=== PATIENT | male | born 2000 | race Caucasian/White ===

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

== ENCOUNTER 2019-04-02 09:43 | Emergency (ER) | payer MEDICAID ==
[~2019-04-02] VITALS: Ht 175.3 cm; Wt 72.6 kg
[2019-04-02 09:58] VITALS: BP_SYST 116
[2019-04-02 11:05] VITALS: BP_SYST 116
== END 2019-04-02 11:05 | disposition home or self-care (01) ==
LOC: SED 09:43
DX: J06.9 Acute upper respiratory infection, unspecified (principal)
CPT/HCPCS: 36415; 86403; 87081; 99283

== ENCOUNTER 2019-07-16 18:54 | Emergency (ER) | payer MEDICAID ==
[~2019-07-16] VITALS: Ht 175.3 cm; Wt 77.6 kg
[2019-07-16 19:01] VITALS: BP_SYST 118
[2019-07-16] MEDS ORDERED: KETOROLAC TROMETHAMINE 60 MG/2 ML VIAL IM ONE (20:30)
[2019-07-16 22:40] VITALS: BP_SYST 115
== END 2019-07-16 22:40 | disposition home or self-care (01) ==
LOC: SED 18:54
DX: S63.92XA Sprain of unspecified part of left wrist and hand, initial encounter (principal); X58.XXXA Exposure to other specified factors, initial encounter; Y93.89 Activity, other specified; Y92.89 Other specified places as the place of occurrence of the external cause; Y99.8 Other external cause status
CPT/HCPCS: 73130; 73200; 96372; 99284; J1885

== ENCOUNTER 2024-05-07 03:01 | Emergency (ER) | payer MEDICAID ==
[~2024-05-07] VITALS: Ht 175.3 cm; Wt 90.7 kg
[2024-05-07 03:15] VITALS: BP_SYST 138; PULSE 104; RESP 16; TEMP 96.8; O2SAT 97
[2024-05-07] MEDS: LIDOCAINE 1% 10 MG/ML, 20 ML MDV INJ ONE (04:15)
[2024-05-07 04:41] VITALS: BP_SYST 131; PULSE 81; RESP 17; TEMP 98.3; O2SAT 95
== END 2024-05-07 04:41 | disposition home or self-care (01) ==
LOC: SED 03:01
DX: L02.511 Cutaneous abscess of right hand (principal); R03.0 Elevated blood-pressure reading, without diagnosis of hypertension
CPT/HCPCS: 87070; 87075; 87186; 99284; J2001